=== PATIENT | female | born 1955 | race Two or more races ===

== ENCOUNTER 2024-04-04 01:30 | Emergency (ER) | payer MEDICARE, MEDICAID, SELFPAY ==
[2024-04-04 01:31] VITALS: BMI 32.8
[2024-04-04 01:44] VITALS: BP 164/92; PULSE 92; RESP 18; TEMP 36.6; O2SAT 97
--- NOTE | 2024-04-04 01:51 | XR_ITS ---
Examination: PA lateral chest 2 views TECHNIQUE: Upright PA lateral chest 2 views Exam date and time: April 04, 2024 0159 hours INDICATIONS: Fever chills today. FINDINGS: Early bibasilar pneumonia Mild prominence left ventricle Moderate osteopenia IMPRESSION: Early bibasilar pneumonia
--- NOTE | 2024-04-04 01:51 | EKG_ITS ---
[facility] Test Date: 2024-04-04 Pat Name: CASSIDY MCDUFFIE Department: Room: - Gender: Female Family Services Specialist: : [id number] Requested By: William Song Order Number: [id number] Reading MD: William Song Measurements Intervals [place] Rate: 86 P: 24 [place]: 142 QRS: 6 QRSD: 84 T: 39 QT: 339 QTc: 408 Interpretive Statements SINUS RHYTHM No previous ECG available for comparison /store/S0/[id number]/ecg/[id number].pdf
--- NOTE | 2024-04-04 01:52 | PD.EDRME ---
Rapid Medical Screening Exam RME Arrival date/time: 04/04/24 01:30 68 year old female present to ED for c/o near syncope, fever, chills. I have greeted and performed a focused initial assessment of this patient. A comprehensive ED assessment and evaluation of the patient, analysis of all test results, and completion of the medical decision making process will be conducted by additional ED providers. Chief Complaint: General Adult/Misc Complain Time Seen by Provider: 04/04/24 01:41 Vital signs: Vital Signs Temperature 97.8 F 04/04/24 01:44 Pulse Rate 92 04/04/24 01:44 Respiratory Rate 18 04/04/24 01:44 Blood Pressure 164/92 H 04/04/24 01:44 Pulse Oximetry (%) 97 04/04/24 01:44 Oxygen Delivery Method Room Air 04/04/24 01:44
[2024-04-04 02:27] LABS: Basophils # (Auto) 0.1 Thou/mm3 (0.0-0.2); Basophils % (Auto) 1 % (0-2.5); Eosinophils % (Auto) 1 % (0-10); Hematocrit 45.3 % (36.0-46.0); Hemoglobin 14.7 g/dL (12.0-16.0); Immature Granulocytes % (Auto) 0 % (0-0); Immature Granulocytes Auto 0.01 Thou/mm3 (0.00-0.00); Lymphocytes # (Auto) 2.1 Thou/mm3 (1.0-4.8); Lymphocytes % (Auto) 31 % (10-50); Mean Corpuscular HGB Conc 32.5 g/dl (31.0-37.0); Mean Corpuscular Hemoglobin 30.9 pg (25.0-35.0); Mean Corpuscular Volume 95 fL (80-100); Monocytes # (Auto) 0.5 Thou/mm3 (0.0-0.8); Monocytes % (Auto) 7 % (0-12); Neutrophils % (Auto) 60 % (37-80); Nucleated Red Blood Cell % 0 /100 WBC (0); Platelet Count 247 Thou/mm3 (140-440); RDW Standard Deviation 42.1 fL (36.4-46.3); Red Blood Count 4.75 Miln/mm3 (4.00-5.20); White Blood Count 6.6 Thou/mm3 (3.6-11.0)
[2024-04-04 02:42] LABS: Alanine Aminotransferase 16 U/L (10-49); Albumin, Serum 4.8 gm/dL (3.4-4.8); Albumin/Globulin Ratio 1.8 (1.2-2.2); Alkaline Phosphatase 102 U/L (46-116); Anion Gap 9 (7-16); Aspartate Amino Transferase 19 U/L (0-34); BUN/Creatinine Ratio 18 Ratio (12-20); Bilirubin,Total 0.5 mg/dL (0.3-1.2); Blood Urea Nitrogen 14 mg/dL (9-23); Calcium 10.2 mg/dL (8.3-10.6); Calcium (Corrected) 10.2 mg/dL (8.5-10.1); Carbon Dioxide 27.7 mMol/L (20.0-31.0); Chloride 105 mMol/L (98-107); Creatinine (Component) 0.8 mg/dL (0.6-1.3); Estimated Creatinine Clearance 60.5 mL/min (>60); Globulin 2.6 gm/dL (2.3-3.5); Glucose 111 mg/dL (74-106); Magnesium 2.2 mg/dL (1.6-2.6); Osmolality,Calculated 284 (275-295); Potassium 3.8 mMol/L (3.4-5.1); Sodium 142 mMol/L (136-145); Total Protein 7.4 gm/dL (5.7-8.2); Troponin I < 0.002 ng/mL (0.0-0.045); eGFR > 60 See Note
[2024-04-04 03:01] LABS: Collection Type, Urine Voided
[2024-04-04 03:07] LABS: Bacteria,Urine 1+; Bilirubin,Urine Negative (Negative); Blood,Urine 1+ (Negative); Clarity,Urine Turbid (Clear/Hazy); Color,Urine Lt-Yellow (Lt Yel-Yel); Glucose, Urine Negative (Negative); Ketones,Urine Negative (Negative); Leukocyte Esterase,Urine Positive (Negative); Nitrite,Urine Positive (Negative); PH,Urine 6.5 (5.0-7.0); Protein,Urine 1+ (Neg - Trace); RBC,Urine 23 /hpf (0-3); Specific Gravity,Urine 1.016 (1.001-1.035); Squamous Epithelial Cell,Urine 1 /hpf (0-5); Urobilinogen,Urine Negative mg/dL (0.0-1.0); WBC,Urine 174 /hpf (0-5)
[2024-04-04 04:05] VITALS: BP 150/98; PULSE 85; RESP 19; TEMP 36.8; O2SAT 99
[2024-04-04 05:27] VITALS: BP 156/95; PULSE 75; RESP 18; TEMP 36.7; O2SAT 98
--- NOTE | 2024-04-04 06:29 | PD.EDADULT ---
ED General RME/HPI General Chief complaint: General Adult/Misc Complain Stated complaint: CHILLS, HOT FLASHES, JAW PAIN Time Seen by Provider: 04/04/24 01:41 Arrival date/time: 04/04/24 01:30 RME / HPI RME / HPI narrative: 04/04/24 01:30 68 year old female present to ED for c/o near syncope, fever, chills. I have greeted and performed a focused initial assessment of this patient. A comprehensive ED assessment and evaluation of the patient, analysis of all test results, and completion of the medical decision making process will be conducted by additional ED providers. DR. CRUZ MAIN ED EVALUATION 68 year old female with history of hyperlipidemia, anxiety presents to the ED for complaint of generalized weakness and feeling shaky all throughout that began last night. Accompanied by nausea and feeling she was going to pass out. Reportedly had experienced similar weakness and feeling shaky before to a lesser extent and does not recall what she was diagnosed with at that time. Denies fevers, chest pain, cough, sore throat, ear ache, abdominal pain, vomiting, diarrhea, constipation, or urinary symptoms. Related Data Home Medications ?Medication ?Instructions ?Recorded ?Confirmed baclofen 10 mg tablet 10 mg PO QDAY #0 tabs 12/21/16 Meclizine CHEW * (ANTIVERT CHEW *) 25 mg PO TID #0 tabs 01/29/17 ibuprofen 600 mg tablet 600 mg PO Q8HR PRN PAIN #0 tabs 01/29/17 Previous Rx's ?Medication ?Instructions ?Recorded levofloxacin 500 mg tablet 500 mg PO QDAY 7 days #7 tabs 04/04/24 Allergies Allergy/AdvReac Type Severity Reaction Status Date / Time NKA* Allergy Uncoded 01/28/17 19:19 Review of Systems Review of Systems Narrative Review of Systems: GEN: No fever, +chills, no weight loss, +feeling shaky, +feeling near syncope EYES: No discharge, no visual changes, no pain HEENT: No ear pain, no congestion, no sore throat PULM: No shortness of breath, no cough, no congestion CV: No chest pain, no palpitations GI: + nausea, no vomiting, no diarrhea, no pain, no constipation : No frequency, no urgency and no dysuria MUSC/SKEL No joint pain, no back pain SKIN: No rash NEURO: No weakness, no headache Past Medical History Past Medical History CARDIAC: Negative Congestive Heart Failure RESPIRATORY: Negative Chronic Obstructive Pulmonary Disease (COPD) GENITOURINARY: Negative Renal Disease ENDOCRINE: Negative Diabetes Mellitus Type 1 or Diabetes Mellitus Type 2 Social History SMOKING STATUS: Never smoker ED Exam Narrative Physical exam: GENERAL APPEARANCE: Well hydrated, well nourished, in no acute distress. VITALS: All vitals were reviewed and the pulse ox is 98% on room air which is normal according to my interpretation. HEENT: Normocephalic, atramatic, EOMI, EACs are patent. There is no bulge or retraction. Throat without erythema or exudate. Moist oromucosa. No jaundice NECK: Supple, no JVD or bruits. CARDIOVASCULAR: Heart regular without S3-S4 or murmur. No rubs or gallops. LUNGS/CHEST: Clear to auscultation bilaterally. No rales, rhonchi, or wheezing. Normal inspection. ABDOMEN: Soft, nontender, with normal bowel sounds. No pulsatile masses. No rebound, rigidity, or guarding. No incarcerated hernia. Normal inspection and palpation. EXTREMITIES: Normal inspection and palpation. No edema, clubbing, or cyanosis. Intact CSM SKIN: Warm and dry without rashes. Normal inspection. MUSCULOSKELETAL: Normal inspection. No gross deformity, full ROM all extremities NEURO: Alert and oriented x3. Cranial nerves II through XII grossly intact. There are no other motor or sensory deficits noted. PSYCHIATRIC: Normal mood and affect. No psychosis Course Quality Measures none Orders Category Date Time Status Bedside COVID-19 Antigen Test NOW Care 04/04/24 01:51 Active Bedside Influenza A&B Antigen Test NOW Care 04/04/24 01:51 Completed EKG (ED ONLY) *Do not use* NOW Care 04/04/24 01:51 Completed EKG (ED Only) Stat Exams 04/04/24 01:51 Draft XR chest 2V Stat Exams 04/04/24 01:51 Taken CBC Stat Lab 04/04/24 02:09 Completed CMP [Comprehensive Metabolic Panel] Stat Lab 04/04/24 02:09 Completed Mag [Magnesium] Stat Lab 04/04/24 02:09 Completed Troponin I Stat Lab 04/04/24 02:09 Completed UA [Urinalysis] Stat Lab 04/04/24 02:39 Completed Urine Culture Stat Lab 04/04/24 02:39 Received Vital Signs Vital signs: Vital Signs Temperature 97.8 F 04/04/24 01:44 Pulse Rate 92 04/04/24 01:44 Respiratory Rate 18 04/04/24 01:44 Blood Pressure 164/92 H 04/04/24 01:44 Pulse Oximetry (%) 97 04/04/24 01:44 Oxygen Delivery Method Room Air 04/04/24 01:44 MDM Patient data External records reviewed:: [facility] previous records (I reviewed ED visit on 04/15/2019) Clinical information provided by:: patient Social determinants that could affect healthcare access:: mental health (Anxiety ) Patient has the following chronic illnesses:: hyperlipidemia, anxiety How is presenting disease/condition affected by chronic disease/condition?: exacerbated by Evaluation data The following diagnostics were reviewed and interpreted by me:: lab results, radiology exam(s) and EKG tracing(s) Lab and/or radiology exams considered but not ordered:: None Interpretation Summary: As noted above Medications Medications considered but not ordered:: None Medication administrations:: See above Consultations Consultation(s) initiated? (list below): No Diagnosis Differential Diagnosis ED Complaint MDM: Anxiety, pneumonia, UTI, dehydration Most likely diagnosis given after review of the tests above:: Urinary tract infection Anxiety Admission Indicated Admission indicated?: not indicated Explain why admission is indicated or not indicated:: Admission criteria not met Admission Request Was there a request for admission?: No Disposition Plan Disposition Plan: Discharge Discharge Attestation Discharge Attestation: The patient and all family members were given an opportunity to ask questions and understood the discharge instructions. Discharge instructions specifically effects, indications for sooner follow up or return to the emergency department, and the expected course of current diagnosis. Patient condition: Stable Medical Decision Making MDM Narrative MDM Narrative: CBC negative. CMP negative. Troponin negative. Magnesium negative. Urine analysis is positive for UTI. Chest x-ray interpreted by me: Cannot rule out a left lower lobe infiltrate. Heart is within normal limit. Mediastinum normal. Normal bones. No leigha CHF. No pneumothorax Twelve-lead EKG at 2:14 AM and interpreted by me: Normal sinus rhythm. Heart rate of 86. Normal axis. No ST elevation or depression. No PVC. No STEMI. Regular rate and rhythm. No sign of ischemia. HEENT examination are unremarkable. There is no sign of dental abscess. No drooling. No trismus. No stridor. Jaws nontender. Abdomen is completely benign. Lungs are clear full and equal. The patient relates to me that she does have a history of anxiety and is taking medication for that. Differential Diagnosis Differential Diagnosis: Anxiety, pneumonia, UTI, dehydration Lab Data 04/04/24 02:09 04/04/24 02:09 Labs: Lab Results 04/04/24 04/04/24 Range/Units 02:09 02:39 WBC 6.6 (3.6-11.0) Thou/mm3 RBC 4.75 (4.00-5.20) Miln/mm3 Hgb 14.7 (12.0-16.0) g/dL Hct 45.3 (36.0-46.0) % MCV 95 (80-100) fL MCH 30.9 (25.0-35.0) pg MCHC 32.5 (31.0-37.0) g/dl RDW Std Deviation 42.1 (36.4-46.3) fL Plt Count 247 (140-440) Thou/mm3 Neut % (Auto) 60 (37-80) % Lymph % (Auto) 31 (10-50) % [place] % (Auto) 7 (0-12) % Eos % (Auto) 1 (0-10) % Baso % (Auto) 1 (0-2.5) % Neut # (Auto) 4.0 (1.8-7.7) Thou/mm3 Lymph # (Auto) 2.1 (1.0-4.8) Thou/mm3 [place] # (Auto) 0.5 (0.0-0.8) Thou/mm3 Eos # (Auto) 0.0 (0.0-0.5) Thou/mm3 Baso # (Auto) 0.1 (0.0-0.2) Thou/mm3 Immature Gran # (Auto) 0.01 H (0.00-0.00) Thou/mm3 Absolute Nucleated RBC 0.00 (0.00-0.00) Thou/mm3 Immature Gran % 0 (0-0) % Nucleated RBC % 0 (0) /100 WBC Sodium 142 (136-145) mMol/L Potassium 3.8 (3.4-5.1) mMol/L Chloride 105 (98-107) mMol/L Carbon Dioxide 27.7 (20.0-31.0) mMol/L Anion Gap 9 (7-16) BUN 14 (9-23) mg/dL Creatinine 0.8 (0.6-1.3) mg/dL Estim Creat Clear Calc 60.5 L (>60) mL/min eGFR > 60 (60 - ) See Note BUN/Creatinine Ratio 18 (12-20) Ratio Glucose 111 H (74-106) mg/dL Calculated Osmolality 284 (275-295) Calcium 10.2 (8.3-10.6) mg/dL Corrected Calcium 10.2 H (8.5-10.1) mg/dL Magnesium 2.2 (1.6-2.6) mg/dL Total Bilirubin 0.5 (0.3-1.2) mg/dL AST 19 (0-34) U/L ALT 16 (10-49) U/L Alkaline Phosphatase 102 (46-116) U/L Troponin I < 0.002 (0.0-0.045) ng/mL Total Protein 7.4 (5.7-8.2) gm/dL Albumin 4.8 (3.4-4.8) gm/dL Globulin 2.6 (2.3-3.5) gm/dL Albumin/Globulin Ratio 1.8 (1.2-2.2) Ur Collection Type Voided Urine Color Lt-Yellow (Lt Yel-Yel) Urine Clarity Turbid A (Clear/Hazy) Urine pH 6.5 (5.0-7.0) Ur Specific [place] 1.016 (1.001-1.035) Urine Protein 1+ A (Neg - Trace) Urine Glucose (UA) Negative (Negative) Urine Ketones Negative (Negative) Urine Blood 1+ A (Negative) Urine Nitrite Positive (Negative) Urine Bilirubin Negative (Negative) Urine Urobilinogen (Auto) Negative (0.0-1.0) mg/dL Ur Leukocyte Esterase Positive (Negative) Urine RBC 23 H (0-3) /hpf Urine WBC 174 H (0-5) /hpf Ur Squamous Epith Cells 1 (0-5) /hpf Urine Bacteria 1+ A (None) Discharge Plan Plan Patient Disposition: HOME (Self Care) Disposition Comment: Stable Prescriptions/Referrals Prescriptions/Med Rec: New levofloxacin 500 mg tablet 500 mg PO QDAY 7 Days Qty: 7 0RF No Action baclofen 10 MG tablet 10 mg PO QDAY Qty: 0 ibuprofen 600 MG tablet 600 mg PO Q8HR PRN (Reason: PAIN) Qty: 0 Meclizine CHEW * (ANTIVERT CHEW *) 25 MG TAB.CHEW 25 mg PO TID Qty: 0 Referrals: No Primary/Family,Physician [Primary Care Provider] - In 1 week Problem List Clinical Impression: Urinary tract infection Patient/Caregiver Discharge Instructions Education Materials: Urinary Tract Infections in Women Additional Instructions: Levaquin as prescribed for urinary tract infection. See your doctor for recheck in 3 days. Return to nearest ER if condition worsens or if new symptoms develop. Print Language: And[place] Stand Alone Forms: Olivia Award Info., Patient Portal Info Letter
== END 2024-04-04 07:09 | disposition home or self-care (01) ==
PROVIDERS: Physician Assistant; Emergency Provider Emergency Medicine
DX: N39.0 Urinary tract infection, site not specified (principal); E78.5 Hyperlipidemia, unspecified
CPT/HCPCS: 36415; 71046; 80053; 81001; 83735; 84484; 85025; 87077; 87086; 87186; 87400; 87811; 93005; 99283

== ENCOUNTER 2024-06-16 10:05 | Day surgery (SDC) | payer MEDICARE, MEDICAID, SELFPAY ==
[2024-06-16] VITALS (10 sets, daily range): BP systolic 127–209; BP diastolic 87–145; PULSE 95–110; RESP 14–20; TEMP 36.4–36.6; O2SAT 90–100; BMI 29.4
[2024-06-16] MEDS: DiphenhydrAMINE INJ 50 MG/ML VIAL 25 MG IV (12:31)
[2024-06-16] MEDS: ONDANSETRON INJ 2 MG/ML INJ 2 ML 4 MG IV (12:34)
[2024-06-16] MEDS: MIDAZOLAM INJ 1 MG/ML VIAL 2 ML (ASD USE ONLY) 2 MG IV (12:44)
[2024-06-16] MEDS: fentaNYL CIT INJ 50 mCg/ML AMP 2ML (ASD USE ONLY) IV (12:47)
[2024-06-16] MEDS: SODIUM CHLORIDE 0.9% 500 ML 500 ML 20 ML IV (12:49)
--- NOTE | 2024-06-16 13:42 | SUR.PHASEII ---
PT READY TO GO HOME BUT STILL WAITING FOR HER RIDE.
== END 2024-06-16 14:01 | disposition home or self-care (01) ==
PROVIDERS: PCP Internal Medicine; Referring Provider Specialist; Visit Provider Specialist
PROC: 0DBE8ZX Excision of Large Intestine, Via Natural or Artificial Opening Endoscopic, Diagnostic (ICD-10-PCS; CPT 45380; principal; 2024-06-16 13:30)
PROC: (CPT 43239; 2024-06-16 13:30)
DX: K64.9 Unspecified hemorrhoids (principal); K57.31 Diverticulosis of large intestine without perforation or abscess with bleeding
CPT/HCPCS: 45378; A4649; J1200; J2250; J2405; J3010; J7040